=== PATIENT | male | born 1965 | race Caucasian/White ===

== ENCOUNTER 2020-06-06 00:45 | Inpatient (IN) ==
[2020-06-06] MEDS: SODIUM CHLORIDE 0.9% 1000ML 1,000 ML IV SCH ×2 (01:10→02:15)
[2020-06-06 01:12] LABS: Basophils # (auto) 0.07 K/uL (0-0.2); Basophils % (auto) 0.6 %; Eosinophils # (auto) 0.05 K/uL (0-0.5); Eosinophils % (auto) 0.4 %; Hematocrit (blood only) 39.3 % (42-52); Hemoglobin 12.9 g/dL (14.0-18.0); Immature Granulocytes # (auto) 0.06 K/uL (0.00-0.02); Immature Granulocytes % (auto) 0.5 %; Lymphocytes # (auto) 1.57 K/uL (1.2-3.4); Lymphocytes % (auto) 13.5 %; Mean Corpuscular Hemoglobin 30.1 pg (25-34); Mean Corpuscular Hgb Conc 32.8 g/dL (32-36); Mean Corpuscular Volume 91.8 fL (80-100); Mean Platelet Volume 10.1 fL (7.4-10.4); Monocytes # (auto) 1.37 K/uL (0.11-0.59); Monocytes % (auto) 11.8 %; Neutrophils # (auto) 8.47 K/uL (1.4-6.5); Neutrophils % (auto) 73.2 %; Platelet Count 339 K/uL (130-400); RDW Coefficient of Variation 13.3 % (11.5-14.5); RDW Standard Deviation 44.5 fL (36.4-46.3); Red Blood Count 4.28 M/uL (4.7-6.1); White Blood Count 11.59 K/uL (4.8-10.8)
--- NOTE | 2020-06-06 01:14 | Emergency Department Note ---
History of Present Illness General Chief complaint: Knee Injury/Pain Stated complaint: KNEE PAIN/FEVER Time Seen by Provider: 06/06/20 00:48 Source: patient Mode of arrival: EMS Limitations: no limitations History of Present Illness Maximum Pain Intensity: 5 This patient is a 55-year-old male who presents to the emergency department via EMS for evaluation of right leg infection. The patient had a right total knee replacement performed by Dr. Perez, [facility] at [facility]. His surgery was 6 days ago. Patient states that 3 days ago, he noticed a feeling of swelling in the leg. He states that his swelling and pain have progressively worsened and he has noticed redness of the knee and lower leg. He contacted his orthopedist's office and they ordered an ultrasound of the leg which was performed today at [facility] and showed no DVT. Patient states that he developed a fever tonight as well as some generalized malaise and nausea. He reports pain worsened tonight as well. He has not noticed any drainage from the incision. He rates his discomfort a 5/10. He denies any cough, shortness of breath, or vomiting. Denies any urinary symptoms. Home Medications Medication Instructions Recorded Confirmed Type acetaminophen 650 mg PO Q4 PRN 06/06/20 06/06/20 History hydrochlorothiazide 25 mg PO DAILY 06/06/20 06/06/20 History hydrocodone-acetaminophen [[place]] 1 tab PO Q4H PRN 06/06/20 06/06/20 History losartan 100 mg PO QAM 06/06/20 06/06/20 History meclizine 25 mg PO BID 06/06/20 06/06/20 History rivaroxaban [Xarelto] 10 mg PO DAILY 06/06/20 06/06/20 History Allergies Allergy/AdvReac Type Severity Reaction Status Date / Time morphine Allergy Difficulty Verified 06/06/20 01:43 Breathing aspirin AdvReac Nose Bleed Verified 06/06/20 01:43 Past Med/Surg History Medical History (Updated 06/06/20 @ 06:25 by Isabel Truong PA-C) Hypertension Morbid obesity Sleep apnea Vertigo Surgical History (Updated 06/06/20 @ 06:25 by Isabel Truong PA-C) S/P total knee replacement Social History Smoking Status: Never smoker Hx Alcohol Use: No Hx Substance Use: No Preferred Language: Icelandic Communication Ability: Effective Beliefs That Will Affect Care: None Current Living Situation: Spouse Feels Safe at Home: Yes Assistive Devices: CPAP and Glasses Review of Systems A total of 10 systems reviewed and were otherwise negative Physical Exam Vital Signs Vital Signs - 24 hr 06/06/20 00:52 06/06/20 01:00 06/06/20 01:17 Temperature 37.4 C Temperature Source Oral Pulse Rate 98 H 93 H 87 Pulse Rhythm Regular Respiratory Rate 20 16 20 Respiratory Effort / Characteristics Non-Labored Spontaneous Respiratory Depth Normal Blood Pressure 152/75 H 114/81 Blood Pressure Mean 100 92 Pulse Oximetry 99 99 100 Oxygen Delivery Method Room Air Room Air Sepsis Recent Fever Within 48 Hours Yes Sepsis New/Unexplained Change in Mental Status N/A Sepsis Action Taken by Nursing No Action Required 06/06/20 01:23 06/06/20 02:00 06/06/20 02:30 Temperature Temperature Source Pulse Rate 90 92 H Pulse Rhythm Respiratory Rate 20 20 Respiratory Effort / Characteristics Non-Labored Spontaneous Respiratory Depth Blood Pressure 139/71 152/83 H Blood Pressure Mean 93 106 Pulse Oximetry 99 99 98 Oxygen Delivery Method Room Air Sepsis Recent Fever Within 48 Hours Sepsis New/Unexplained Change in Mental Status Sepsis Action Taken by Nursing VITALS: Vitals are noted on the nurse's note and reviewed by myself. Vital signs stable. GENERAL: This is a 55-year-old male, in no acute distress, well-developed well- nourished. EARS: External auditory canals clear, tympanic membranes pearly ward without erythema or effusion bilaterally. EYES: Pupils equal round and reactive to light and accommodation. MOUTH: Mucous membranes moist. NECK: Supple without nuchal rigidity. HEART: Regular rate and rhythm without murmurs gallops or rubs. LUNGS: Clear to auscultation bilaterally without wheezes, rales or rhonchi. No retractions or accessory muscle use. ABDOMEN: Positive bowel sounds x 4. Soft, nontender to palpation. EXTREMITIES: RIGHT LEG: Stapled wound to the right knee without drainage. There is erythema extending from the right knee down the leg and foot. 2+ pitting edema noted to the lower extremity. Dorsalis pedis pulse 2+. Capillary refill within 2 seconds. NEURO: Patient was alert and oriented to person place and time. Distal sensation intact. Course Consultations Consultation #1: Dr. Perez - [facility] Discussed the case with Dr. Perez, the patient surgeon. He states that he was made aware the patient was having issues with redness and swelling of the leg and he had ordered a Doppler earlier today due to this which was negative. He thinks it is unlikely that the patient has a septic joint and does not feel that he needs to be transferred at this time. Consultation #2: Dr. Rea [facility] hospitalist Administered Medications Acetaminophen (Acetaminophen 325 Mg Tab) 650 mg PO Q4 PRN PRN Reason: Pain or Fever Stop: 07/06/20 05:02 Last Admin: 06/06/20 05:57 Dose: 650 mg Documented by: [id number] Hydromorphone HCl (Hydromorphone Inj 0.5 Mg/0.5 Ml Syr) 0.2 mg IV Q3H PRN PRN Reason: Severe Pain Stop: 06/20/20 04:15 Last Admin: 06/06/20 05:57 Dose: 0.2 mg Documented by: [id number] Discontinued Medications Sodium Chloride (Nss 1000ml) 1,000 mls @ 999 mls/hr IV .Q1H1M SUNIL Stop: 06/06/20 03:02 Last Infusion: 06/06/20 04:24 Dose: 0 mls/hr Documented by: [id number] Admin: 06/06/20 02:15 Dose: 999 mls/hr Documented by: [id number] Cosigned by: [id number] Infusion: 06/06/20 02:11 Dose: 999 mls/hr Documented by: [id number] Cosigned by: [id number] Admin: 06/06/20 01:10 Dose: 999 mls/hr Documented by: [id number] Cosigned by: [id number] Ceftriaxone Sodium (Rocephin) 2,000 mg in 70 mls @ 140 mls/hr IV NOW STA Stop: 06/06/20 03:14 Last Infusion: 06/06/20 04:24 Dose: 0 mls/hr Documented by: [id number] Admin: 06/06/20 03:00 Dose: 140 mls/hr Documented by: [id number] Cosigned by: [id number] Vancomycin HCl 2,750 mg/ (Sodium Chloride) 555 mls @ 200 mls/hr IV NOW ONE Stop: 06/06/20 06:04 Last Admin: 06/06/20 04:24 Dose: 200 mls/hr Documented by: [id number] Miscellaneous Information (Vancomycin Consult Active) 1 ea N/A UD PRN PRN Reason: Consult Stop: 07/06/20 03:17 Last Admin: 06/06/20 04:24 Dose: 1 ea Documented by: [id number] Medical Decision Making Differential Diagnosis Differential diagnosis includes septic joint, cellulitis, DVT, superficial thrombosis, sepsis, peripheral vascular disease, among others. Home Medications Current Medication List: was personally reviewed by me Laboratory Data Attestation: I reviewed the patient's lab results. Result diagrams: 06/06/20 00:55 06/06/20 00:55 Lab Results 06/06/20 06/06/20 06/06/20 Range/Units 00:55 00:55 00:55 WBC 11.59 H (4.8-10.8) K/uL RBC 4.28 L (4.7-6.1) M/uL Hgb 12.9 L (14.0-18.0) g/dL Hct 39.3 L (42-52) % MCV 91.8 (80-100) fL MCH 30.1 (25-34) pg MCHC 32.8 (32-36) g/dL RDW Std Deviation 44.5 (36.4-46.3) fL RDW Coeff of Mary Ann 13.3 (11.5-14.5) % Plt Count 339 (130-400) K/uL MPV 10.1 (7.4-10.4) fL Immature Gran % (Auto) 0.5 % Neut % (Auto) 73.2 % Lymph % (Auto) 13.5 % Mills % (Auto) 11.8 % Eos % (Auto) 0.4 % Baso % (Auto) 0.6 % Neut # (Auto) 8.47 H (1.4-6.5) K/uL Lymph # (Auto) 1.57 (1.2-3.4) K/uL [place] # (Auto) 1.37 H (0.11-0.59) K/uL Eos # (Auto) 0.05 (0-0.5) K/uL Baso # (Auto) 0.07 (0-0.2) K/uL Immature Gran # (Auto) 0.06 H (0.00-0.02) K/uL PT 11.7 (9.0-12.0) Seconds INR 1.2 H (0.9-1.1) APTT 28.7 (21.0-31.0) Seconds PTT Ratio 1.1 Sodium 140 (136-145) mmol/L Potassium 3.6 (3.5-5.1) mmol/L Chloride 104 (98-107) mmol/L Carbon Dioxide 29 (21-32) mmol/L Anion Gap 7.0 (3-11) BUN 14 (7-18) mg/dl Creatinine 0.94 (0.6-1.4) mg/dl Est Cr Clr Drug Dosing 146.7 ml/min Est GFR ( Amer) 105.4 Est GFR (Non-Af Amer) 90.9 BUN/Creatinine Ratio 15.4 (10-20) Glucose 114 H (70-99) mg/dl Lactate (0.4-2.0) mmol/L Calcium 8.7 (8.5-10.1) mg/dl Total Bilirubin 1.1 H (0.2-1) mg/dl AST 24 (15-37) U/L ALT 28 (12-78) U/L Alkaline Phosphatase 102 (45-117) U/L Total Protein 7.7 (6.4-8.2) gm/dl Albumin 3.0 L (3.4-5.0) gm/dl Globulin 4.7 H (2.5-4.0) gm/dl Albumin/Globulin Ratio 0.6 L (0.9-2) COVID-19 Eval Order SARS-CoV-2, RNA, NAAT (NEGATIVE) 06/06/20 06/06/20 06/06/20 Range/Units 01:15 01:15 01:26 WBC (4.8-10.8) K/uL RBC (4.7-6.1) M/uL Hgb (14.0-18.0) g/dL Hct (42-52) % MCV (80-100) fL MCH (25-34) pg MCHC (32-36) g/dL RDW Std Deviation (36.4-46.3) fL RDW Coeff of Mary Ann (11.5-14.5) % Plt Count (130-400) K/uL MPV (7.4-10.4) fL Immature Gran % (Auto) % Neut % (Auto) % Lymph % (Auto) % [place] % (Auto) % Eos % (Auto) % Baso % (Auto) % Neut # (Auto) (1.4-6.5) K/uL Lymph # (Auto) (1.2-3.4) K/uL [place] # (Auto) (0.11-0.59) K/uL Eos # (Auto) (0-0.5) K/uL Baso # (Auto) (0-0.2) K/uL Immature Gran # (Auto) (0.00-0.02) K/uL PT (9.0-12.0) Seconds INR (0.9-1.1) APTT (21.0-31.0) Seconds PTT Ratio Sodium (136-145) mmol/L Potassium (3.5-5.1) mmol/L Chloride (98-107) mmol/L Carbon Dioxide (21-32) mmol/L Anion Gap (3-11) BUN (7-18) mg/dl Creatinine (0.6-1.4) mg/dl Est Cr Clr Drug Dosing ml/min Est GFR ( Amer) Est GFR (Non-Af Amer) BUN/Creatinine Ratio (10-20) Glucose (70-99) mg/dl Lactate 1.2 (0.4-2.0) mmol/L Calcium (8.5-10.1) mg/dl Total Bilirubin (0.2-1) mg/dl AST (15-37) U/L ALT (12-78) U/L Alkaline Phosphatase (45-117) U/L Total Protein (6.4-8.2) gm/dl Albumin (3.4-5.0) gm/dl Globulin (2.5-4.0) gm/dl Albumin/Globulin Ratio (0.9-2) COVID-19 Eval Order Covid19 [facility] SARS-CoV-2, RNA, NAAT NEGATIVE (NEGATIVE) Imaging Data Attestation: I personally reviewed and interpreted this imaging study as follows: My Impression: CHEST 1 VIEW: Normal cardiac silhouette. No pulmonary consolidation. No pneumothorax. ECG Data Attestation: I personally reviewed and interpreted this ECG as follows: Indication: + weakness Rate (beats per minute): 88 Rhythm: + normal sinus ECG Intervals/blocks: + Normal QRS ECG ST segments: + Normal ST segments Comparison ECG Date: no prior available MDM Narrative Continuous cardiac cath technician: Order was placed for continuous cardiac cath technician. Patient was placed on the cardiac cath technician. Patient was noted to be in normal sinus rhythm at an initial rate of 85 bpm. The patient is a 55-year-old male who presents today complaining of right leg swelling/redness and pain. Patient had a recent knee replacement. Fortunately, he appears to have a cellulitis versus a septic joint at this time, however given recent instrumentation I would be concerned for the possibility of a developing septic joint. Labs revealed a leukocytosis of 11.59, otherwise were unremarkable. Lactate was not elevated. Blood cultures drawn and pending. Patient was febrile at home although afebrile here. His surgeon did not recommend transfer at this time as he felt a septic joint was unlikely. The case was discussed with the hospitalist service here, who agreed to evaluate the patient for further care. He received Rocephin and vancomycin in the ED as well as a fluid bolus. Impression & Plan Cellulitis of right lower extremity without foot, S/P total knee replacement, Postoperative infection Discharge Plan Visit Data Chief Complaint: Knee Injury/Pain Stated Complaint: KNEE PAIN/FEVER ED Provider: [facility] ED Midlevel Provider: Isabel Truong Discharge Problem: Cellulitis of right lower extremity without foot, S/P total knee replacement, Postoperative infection Patient Disposition: Admitted As Inpatient Discharge Instructions Interventions: ED Discharge Assessment Last Done: 06/06/20 04:34 Discharge Problem: S/P total knee replacement Qualifiers: Laterality: right Qualified Code(s): Z96.651 - Presence of right artificial knee joint Postoperative infection Qualifiers: Encounter type: initial encounter Postoperative infection type: unspecified type Qualified Code(s): T81.40XA - Infection following a procedure, unspecified, initial encounter
[2020-06-06 01:25] LABS: INR 1.2 (0.9-1.1); Partial Thromboplastin Ratio 1.1; Partial Thromboplastin Time 28.7 Seconds (21.0-31.0); Prothrombin Time 11.7 Seconds (9.0-12.0)
[2020-06-06 01:41] LABS: BUN Creatinine Ratio 15.4 (10-20); Calcium 8.7 mg/dl (8.5-10.1); Creatinine Clr Calc Pharmacy 146.7 ml/min; Est GFR (African American) 105.4; Est GFR (Non-African American) 90.9; Potassium 3.6 mmol/L (3.5-5.1)
[2020-06-06 01:44] LABS: Albumin Globulin Ratio 0.6 (0.9-2); Bilirubin,Total 1.1 mg/dl (0.2-1); Globulin 4.7 gm/dl (2.5-4.0); Total Protein 7.7 gm/dl (6.4-8.2)
[2020-06-06] MEDS ORDERED: cefTRIAXone SODIUM 2,000 MG/70 ML BAG IV STA (02:45)
[2020-06-06] MEDS ORDERED: VANCOMYCIN CONSULT ACTIVE PRN ×2 (03:18→05:03)
[2020-06-06] MEDS ORDERED: VANCOMYCIN HCL 2,750 MG in SODIUM CHLORIDE 0.9% 500 ML IV ONE (03:18)
--- NOTE | 2020-06-06 04:17 | History & Physical Report ---
Date of Service June 06, 2020 Assessment & Plan (1) Cellulitis of right lower extremity without foot: Right lower extremity cellulitis/postoperative infection/status post right TKA- Infection does not appear to involve the joint directly at this time. Place on vancomycin IV per pharmacokinetic monitoring. Zosyn 4.5 g IV every 8 hours Keep in contact with orthopedic surgeon [facility] Dr. Perez. Acetaminophen 650 mg p.o. every 6 hours as needed mild pain or temperature [place] 5/325, 1 p.o. every 6 hours as needed moderate pain Dilaudid 0.2 mg IV every 3 hours as needed severe pain Present on Admission?: Yes (2) Postoperative infection: See above Present on Admission?: Yes (3) S/P total knee replacement: See above Continue Xarelto Present on Admission?: Yes (4) Vertigo: Continue meclizine Present on Admission?: Yes (5) Sleep apnea: STEVEN- Patient will use his own CPAP Present on Admission?: Yes (6) Hypertension: Hold HCTZ. Continue losartan 100 mg p.o. every morning with hold parameters Present on Admission?: Yes History of Present Illness Chief Complaint: The patient presents to the emergency department with complaint of worsening right lower extremity pain, swelling and redness. Primary Care Provider: Abdirashid Wilburn The patient is a 55-year-old male with a past medical history including hypertension, morbid obesity and vertigo, who underwent a right total knee arthroplasty by Dr. Perez at [facility] on 05/31/2020. He reports that 3 days ago, he started noticed some swelling and redness, which progressed over the past 2 days. He called the orthopedist office, and he was sent sent to [facility] on 06/05, where he had venous Doppler which was negative for DVT. Later this evening, he developed a temperature, and with worsening discomfort, he presented to the ED at [facility] for assessment, was found to have a right lower extremity cellulitis, and was referred for evaluation for admission. Allergies Allergy/AdvReac Type Severity Reaction Status Date / Time morphine Allergy Difficulty Verified 06/06/20 01:43 Breathing aspirin AdvReac Nose Bleed Verified 06/06/20 01:43 Home Medications Medication Instructions Recorded Confirmed Type acetaminophen 650 mg PO Q4 PRN 06/06/20 06/06/20 History hydrochlorothiazide 25 mg PO DAILY 06/06/20 06/06/20 History hydrocodone-acetaminophen [[place]] 1 tab PO Q4H PRN 06/06/20 06/06/20 History losartan 100 mg PO QAM 06/06/20 06/06/20 History meclizine 25 mg PO BID 06/06/20 06/06/20 History rivaroxaban [Xarelto] 10 mg PO DAILY 06/06/20 06/06/20 History Past Med/Surg History Medical History Hypertension Sleep apnea Surgical History (Updated 06/06/20 @ 04:13 by Peña Rea MD) S/P total knee replacement Social History Smoking Status: Never smoker Preferred Language: Swedish Feels Safe at Home: Yes Review of Systems Review of Systems: The patient denies chest pain, palpitations, shortness of breath, dyspnea on exertion, cough, sore throat, fevers, chills, sweats, nausea, vomiting, diarrhea , constipation, abdominal pain, pelvic pain, blood in urine or stool, dysuria, urinary frequency or urgency, lightheadedness, dizziness, headache, memory loss, loss of consciousness, abnormal bruising or bleeding, generalized weakness, numbness or tingling in arms, generalized arthralgias or m yalgias, back or neck pain, or night sweats. The review of systems is otherwise negative other than for that already noted above, and at least 10 systems have been reviewed. Physical Exam Physical Exam: The patient is awake, alert and oriented 3, well developed and well nourished, normocephalic and atraumatic, lying in bed and in no acute distress. HEENT--PERRL, EOMI, mucous membranes and oropharynx normal. Neck--supple. No JVD. No bruits. Thyroid normal, trachea midline, no adenopathy. Heart--normal S1 and S2. No murmurs, rubs or gallops. Lungs--clear bilaterally, no respiratory distress, no accessory muscle use. Abdomen--normal bowel sounds and soft. Nontender. Nondistended. Morbidly obese Extremities--no cyanosis or clubbing. Right lower extremity with 3+ pitting edema mild to moderate erythema and warmth. Left lower extremity with 2+ pretibial pitting edema. Incision of right knee is intact with francis, with most erythema and warmth distal to incision. Dermatologic--as noted Neurologic--cranial nerves II through XII grossly intact. Rheumatologic--decreased range of motion right lower extremity/knee due to swelling Psychiatric--normal affect. Results & Data Results & Data ([facility]) Vital Signs (Past 12 Hours) Vital Signs Temp Pulse Resp BP Pulse Ox 06/06/20 02:30 92 H 20 152/83 H 98 06/06/20 02:00 90 20 139/71 99 06/06/20 01:23 99 06/06/20 01:17 87 20 100 06/06/20 01:00 93 H 16 114/81 99 06/06/20 00:52 99.3 F 98 H 20 152/75 H 99 Laboratory Results Laboratory Results WBC 11.59 K/uL (4.8-10.8) H 06/06/20 00:55 RBC 4.28 M/uL (4.7-6.1) L 06/06/20 00:55 Hgb 12.9 g/dL (14.0-18.0) L 06/06/20 00:55 Hct 39.3 % (42-52) L 06/06/20 00:55 MCV 91.8 fL (80-100) 06/06/20 00:55 MCH 30.1 pg (25-34) 06/06/20 00:55 MCHC 32.8 g/dL (32-36) 06/06/20 00:55 RDW Std Deviation 44.5 fL (36.4-46.3) 06/06/20 00:55 RDW Coeff of Mary Ann 13.3 % (11.5-14.5) 06/06/20 00:55 Plt Count 339 K/uL (130-400) 06/06/20 00:55 MPV 10.1 fL (7.4-10.4) 06/06/20 00:55 Immature Gran % (Auto) 0.5 % 06/06/20 00:55 Neut % (Auto) 73.2 % 06/06/20 00:55 Lymph % (Auto) 13.5 % 06/06/20 00:55 [place] % (Auto) 11.8 % 02/03/21 00:55 Eos % (Auto) 0.4 % 06/06/20 00:55 Baso % (Auto) 0.6 % 06/06/20 00:55 Neut # (Auto) 8.47 K/uL (1.4-6.5) H 06/06/20 00:55 Lymph # (Auto) 1.57 K/uL (1.2-3.4) 06/06/20 00:55 [place] # (Auto) 1.37 K/uL (0.11-0.59) H 06/06/20 00:55 Eos # (Auto) 0.05 K/uL (0-0.5) 06/06/20 00:55 Baso # (Auto) 0.07 K/uL (0-0.2) 06/06/20 00:55 Immature Gran # (Auto) 0.06 K/uL (0.00-0.02) H 06/06/20 00:55 PT 11.7 Seconds (9.0-12.0) 06/06/20 00:55 INR 1.2 (0.9-1.1) H 06/06/20 00:55 APTT 28.7 Seconds (21.0-31.0) 06/06/20 00:55 PTT Ratio 1.1 06/06/20 00:55 Sodium 140 mmol/L (136-145) 06/06/20 00:55 Potassium 3.6 mmol/L (3.5-5.1) 06/06/20 00:55 Chloride 104 mmol/L (98-107) 06/06/20 00:55 Carbon Dioxide 29 mmol/L (21-32) 06/06/20 00:55 Anion Gap 7.0 (3-11) 06/06/20 00:55 BUN 14 mg/dl (7-18) 06/06/20 00:55 Creatinine 0.94 mg/dl (0.6-1.4) 06/06/20 00:55 Est Cr Clr Drug Dosing 146.7 ml/min 06/06/20 00:55 Est GFR ( Amer) 105.4 06/06/20 00:55 Est GFR (Non-Af Amer) 90.9 06/06/20 00:55 BUN/Creatinine Ratio 15.4 (10-20) 06/06/20 00:55 Glucose 114 mg/dl (70-99) H 06/06/20 00:55 Lactate 1.2 mmol/L (0.4-2.0) 06/06/20 01:26 Calcium 8.7 mg/dl (8.5-10.1) 06/06/20 00:55 Total Bilirubin 1.1 mg/dl (0.2-1) H 06/06/20 00:55 AST 24 U/L (15-37) 06/06/20 00:55 ALT 28 U/L (12-78) 06/06/20 00:55 Alkaline Phosphatase 102 U/L (45-117) 06/06/20 00:55 Total Protein 7.7 gm/dl (6.4-8.2) 06/06/20 00:55 Albumin 3.0 gm/dl (3.4-5.0) L 06/06/20 00:55 Globulin 4.7 gm/dl (2.5-4.0) H 06/06/20 00:55 Albumin/Globulin Ratio 0.6 (0.9-2) L 06/06/20 00:55 COVID-19 Eval Order Covid19 IDNow [facility] 06/06/20 01:15 SARS-CoV-2, RNA, NAAT NEGATIVE (NEGATIVE) 06/06/20 01:15 Code Status & VTE Plan Code Status Full code VTE Prophylaxis Plan VTE Prophylaxis will be ordered: Yes PG Care Time/CCT Total # of Minutes Spent Total Time Spent with Patient: Total time spent is greater than 50% in coordination of care (as documented) at patient's floor/unit and/or counseling patient: Coding Level of Care Code 71178 Initial Inpt Care Lvl 3 Diagnoses Cellulitis of right lower extremity without foot L03.115 Postoperative infection T81.40XA S/P total knee replacement Z96.659 Vertigo R42 Sleep apnea G47.30 Hypertension I10
[2020-06-06] MEDS ORDERED: VANCOMYCIN HCL 1,000 MG in SODIUM CHLORIDE 0.9% 250 ML IV SCH (05:03)
[2020-06-06] MEDS ORDERED: ONDANSETRON INJ 2 MG/ML 2 ML VIAL IV PRN (05:03)
[2020-06-06] MEDS ORDERED: PIPERACILL/TAZOBAC CONSULT ACTIVE PRN (05:03)
[2020-06-06] MEDS: ACETAMINOPHEN 325 MG TAB PO PRN ×2 (05:57→16:35)
[2020-06-06] MEDS: HYDROmorphone INJ 0.5 MG/0.5 ML SYR IV PRN ×4 (05:57→20:32)
--- NOTE | 2020-06-06 07:33 | XRay Report ---
XR chest 1V portable HISTORY: SEPSIS COMPARISON: None. FINDINGS: There are low lung volumes. The cardiac silhouette is mildly enlarged. The lungs are clear. No evidence for pulmonary edema. No pleural effusions. No pneumothorax. IMPRESSION: Mild cardiomegaly. ACT 112: Negative or not required by law. Electronically signed by: Isaac Heath M.D. 06/06/2020 7:32 AM
[2020-06-06] MEDS ORDERED: PIPERACILLIN/TAZOBACTAM 4.5 GM in DEXTROSE 5% 100 ML IV ONE (08:00)
[2020-06-06] MEDS: RIVAROXABAN 10 MG TABLET PO SCH (08:07)
[2020-06-06] MEDS: LOSARTAN POTASSIUM 50 MG TAB PO SCH (08:08)
[2020-06-06] MEDS: MECLIZINE HCL 25 MG TAB PO SCH ×2 (08:09→20:35)
[2020-06-06 10:20] LABS: Appearance Urine Clear (Clear); Bacteria Urine Automated Negative (Negative); Bilirubin Urine Negative (Negative); Blood Urine Negative (Negative); Color Urine Dark Yellow; Glucose Urine UA Negative (Negative); Ketones Urine 1+ (Negative); Leukocyte Esterase Urine Negative (Negative); Nitrite Urine Negative (Negative); Protein Urine Trace (Negative); RBC Urine Automated 0-4 /hpf (0-4); Specific Gravity Urine 1.028 (1.000-1.030); Urobilinogen Urine Negative (Negative); pH Urine 5.5 (4.5-7.5)
[2020-06-06] MEDS: PIPERACILLIN/TAZOBACTAM 4.5 GM in DEXTROSE 5% 100 ML IV SCH ×2 (11:56→20:35)
[2020-06-06] MEDS ORDERED: DAPTOmycin 500 MG in SYRINGE 0 ML IV SCH (12:00)
--- NOTE | 2020-06-06 14:20 | Hospitalist Progress Note ---
Date of Service June 06, 2020 Assessment & Plan (1) Cellulitis of right lower extremity without foot: Right lower extremity cellulitis versus soft tissue hemorrhage. Status post right TKA a short time ago in [place].- Currently on Zosyn and daptomycin. Orthopedic evaluation pending. Procalcitonin level ordered. Orthopedic surgeon [facility] is Dr. Perez. [place] 5/325, 1 p.o. every 6 hours as needed moderate pain Dilaudid 0.2 mg IV every 3 hours as needed severe pain (2) Postoperative infection: See above. Current clinical presentation could be due to postoperative of soft tissue hemorrhage however. (3) S/P total knee replacement: See above Continue Xarelto for now. May need to discontinue (4) Vertigo: Continue meclizine (5) Sleep apnea: STEVEN- Patient will use his own CPAP (6) Hypertension: Hold HCTZ. Continue losartan 100 mg p.o. every morning with hold parameters Admission and Anticipated Discharge Date Admission Date: June 06, 2020 Subjective Alert and oriented. No complaints. The right lower extremity appearance may actually be due to soft tissue hemorrhage rather than cellulitis. Will ask orthopedic surgery to evaluate the leg. Procalcitonin ordered. He is currently on Zosyn and daptomycin. Venous Doppler of the right lower extremity negative on Jun 05 in [place]. Review of Systems Review of Systems: Constitutional- fever, no chills ENT-no blurred vision, no double vision, no epistaxis, no sore throat Respiratory-no cough, no wheezing, no shortness of breath Cardiac-no palpitations, no chest pain, no syncope GI-no nausea, vomiting, diarrhea, melena, hematochezia -no urinary retention, no urinary incontinence, no dysuria, no hematuria Musculoskeletal-postoperative right knee discomfort as expected with limited range of motion. Erythema swelling and tenderness of the right lower extremity below the knee Skin-no bruising, no rashes, no pruritus Neuro-no isolated weakness, no paresthesia, no weakness Psych-no depression, no anxiety Physical Exam Physical Exam: General-alert and oriented x3, no fevers, no chills HEENT-head atraumatic and normocephalic, TMs intact bilaterally, pupils equal and reactive to light, extraocular muscles intact Neck-no lymphadenopathy or thyromegaly, trachea midline Chest-clear to auscultation percussion. No rales wheezing or rhonchi Cardiac-regular rate and rhythm, normal S1 and S2, no murmurs Abdomen-normal bowel sounds, nontender, no hepatosplenomegaly Extremities-right knee surgical site is intact without drainage. Diffuse discoloration and erythema of the right lower extremity from the knee to the foot with tenderness. Neuro-cranial nerves II through XII intact, motor and sensory function within normal limits Psych-normal affect, normal mood Results & Data Results & Data ([facility]) Vital Signs (Past 12 Hours) Vital Signs Temp Pulse Pulse Pulse Resp BP BP 06/06/20 07:00 37.2 C 91 H 18 138/78 06/06/20 04:57 37.1 C 97 H 16 06/06/20 04:45 37.7 C H 92 H 18 148/88 H 06/06/20 04:34 87 16 140/78 06/06/20 02:30 92 H 20 152/83 H BP Pulse Ox 06/06/20 07:00 97 06/06/20 04:57 160/80 H 99 06/06/20 04:45 98 06/06/20 04:34 99 06/06/20 02:30 98 Laboratory Results 06/06/20 00:55 06/06/20 00:55 PG Care Time/CCT Total # of Minutes Spent Total Time Spent with Patient: Total time spent is greater than 50% in coordination of care (as documented) at patient's floor/unit and/or counseling patient: Coding Level of Care Code 06944 Subseq Hosp Care Lvl 3 Diagnoses Cellulitis of right lower extremity without foot L03.115 Postoperative infection T81.40XA Encounter type: initial encounter Postoperative infection type: unspecified type S/P total knee replacement Z96.651 Laterality: right Vertigo R42 Sleep apnea G47.30 Hypertension I10 (1) Postoperative infection Encounter type: initial encounter Postoperative infection type: unspecified type Qualified Code(s): T81.40XA - Infection following a procedure, unspecified, initial encounter (2) S/P total knee replacement Laterality: right Qualified Code(s): Z96.651 - Presence of right artificial knee joint
--- NOTE | 2020-06-06 14:30 | XRay Report ---
TWO VIEWS RIGHT KNEE CLINICAL HISTORY: Right knee pain. FINDINGS: AP and crosstable lateral portable views of the right knee are obtained. No prior studies a re available for comparison at the time of dictation. A right knee arthroplasty is in near anatomic a lignment. There has been undersurface remodeling of the patella. No acute fracture is seen. There is a joint effusion. There are expected postoperative changes around the knee including skin clips, a thurman rgical drain, soft tissue edema, and subcutaneous gas. IMPRESSION: Expected postoperative changes status post right knee arthroplasty. No acute fracture is seen. ACT 112: Negative or not required by law. Electronically signed by: Tyler Flores M.D. 06/06/2020 2:28 PM
--- NOTE | 2020-06-06 16:03 | Electrocardiogram Report ---
Test Reason : Blood Pressure : / mmHG Vent. Rate : 088 BPM Atrial Rate : 088 BPM P-R Int : 154 ms QRS Dur : 098 ms QT Int : 368 ms P-R-T Axes : 015 -13 010 degrees QTc Int : 445 ms Normal sinus rhythm Minimal voltage criteria for LVH, may be normal variant Borderline ECG No previous ECGs available Confirmed by Isai Morales ([id number]) on 06/06/2020 4:03:43 PM Referred By: REFERRED SELF Confirmed By:Isai Morales
[2020-06-06] MEDS: HYDROCODONE/ACETAMOPHEN 5/325MG TAB PO PRN (22:24)
[2020-06-07] MEDS: HYDROmorphone INJ 0.5 MG/0.5 ML SYR IV PRN ×4 (00:34→11:03)
[2020-06-07] MEDS: PIPERACILLIN/TAZOBACTAM 4.5 GM in DEXTROSE 5% 100 ML IV SCH ×2 (03:41→11:21)
[2020-06-07] MEDS: HYDROCODONE/ACETAMOPHEN 5/325MG TAB PO PRN ×2 (05:43→12:08)
[2020-06-07 05:57] LABS: Basophils # (auto) 0.07 K/uL (0-0.2); Basophils % (auto) 0.7 %; Eosinophils # (auto) 0.05 K/uL (0-0.5); Eosinophils % (auto) 0.5 %; Hematocrit (blood only) 35.3 % (42-52); Hemoglobin 11.2 g/dL (14.0-18.0); Immature Granulocytes # (auto) 0.03 K/uL (0.00-0.02); Immature Granulocytes % (auto) 0.3 %; Lymphocytes # (auto) 1.37 K/uL (1.2-3.4); Lymphocytes % (auto) 14.3 %; Mean Corpuscular Hemoglobin 29.4 pg (25-34); Mean Corpuscular Hgb Conc 31.7 g/dL (32-36); Mean Corpuscular Volume 92.7 fL (80-100); Mean Platelet Volume 9.9 fL (7.4-10.4); Monocytes % (auto) 10.4 %; Neutrophils # (auto) 7.08 K/uL (1.4-6.5); Neutrophils % (auto) 73.8 %; Platelet Count 351 K/uL (130-400); RDW Coefficient of Variation 13.4 % (11.5-14.5); RDW Standard Deviation 45.6 fL (36.4-46.3); Red Blood Count 3.81 M/uL (4.7-6.1)
[2020-06-07] MEDS: LOSARTAN POTASSIUM 50 MG TAB PO SCH (07:55)
[2020-06-07] MEDS: MECLIZINE HCL 25 MG TAB PO SCH (07:55)
[2020-06-07] MEDS: RIVAROXABAN 10 MG TABLET PO SCH (07:55)
--- NOTE | 2020-06-07 07:57 | Orthopedic Consultation ---
Date of Service June 07, 2020 Assessment & Plan (1) S/P total knee replacement: He was seen and examined by Dr. Alexander today. He does have some obvious swelling, erythema and is quite tender in his lower extremity. He can dorsiflex and plantarflex appropriately though and does not appear to have a compartment syndrome. We reassured him that swelling and discoloration that he has is not uncommon after total knee replacement especially in the postoperative day 6-10 range that he is in. He is also on Xarelto which is likely contributed some to this. We did recommend some compression on the lower extremity. He has tried wearing some EZIO stockings but had some pain with these. He can either continue with the EZIO stockings but at this time will wrap his leg with some Kerlix and an Ralph wrap to his knee which would be reasonable for him to continue as well. It is important to elevate this. We also recommended that he gets up and walks every couple of hours. Continue with physical therapy. We will order some therapy here in the hospital to help with knee motion while he is here. From an orthopedic standpoint it is okay for him to be discharged home. We would recommend some oral antibiotics just for coverage at this time. Would recommend Keflex 500 mg 4 times daily for 10 days. He should follow up with his orthopedic surgeon in the [place] area as scheduled. History of Present Illness Reason for Consultation: . Possible cellulitis status post total knee arthroplasty Requesting Physician: . Attending Physician: Giovanni Arroyo MD . Mr. Ron is a 55-year-old gentleman who is now 7 days status post right total knee arthroplasty done in [facility] by Dr. Perez with [facility] orthopedics. He was discharged home postoperative day 1 he reports that he was doing pretty well the first couple of days. On postop day 3 he developed some increased pain and swelling in his leg. It did worsen and he developed some redness in the lower leg. He said he had fever as well. Denies any wound drainage. Apparently had an ultrasound done as an outpatient which was negative for DVT. He presented to [facility] was admitted to the hospitalist service. he reports pain in the lower leg down. He received some IV antibiotics. Allergies Allergy/AdvReac Type Severity Reaction Status Date / Time morphine Allergy Difficulty Verified 06/06/20 01:43 Breathing aspirin AdvReac Nose Bleed Verified 06/06/20 01:43 Home Medications Medication Instructions Recorded Confirmed Type acetaminophen 650 mg PO Q4 PRN 06/06/20 06/06/20 History hydrochlorothiazide 25 mg PO DAILY 06/06/20 06/06/20 History hydrocodone-acetaminophen [[place]] 1 tab PO Q4H PRN 06/06/20 06/06/20 History losartan 100 mg PO QAM 06/06/20 06/06/20 History meclizine 25 mg PO BID 06/06/20 06/06/20 History rivaroxaban [Xarelto] 10 mg PO DAILY 06/06/20 06/06/20 History Past Med/Surg History Medical History Hypertension Morbid obesity Sleep apnea Vertigo Surgical History S/P total knee replacement Social History Smoking Status: Never smoker Hx Alcohol Use: No Hx Substance Use: No Preferred Language: Slovenian Communication Ability: Effective Beliefs That Will Affect Care: None Current Living Situation: Spouse Feels Safe at Home: Yes Assistive Devices: CPAP Review of Systems All systems reviewed & are unremarkable except as noted in HPI & below. Physical Exam . Constitutional well developed and well nourished; no acute distress Respiratory normal respiratory effort Cardiovascular Extremities: normal capillary refill and + edema Musculoskeletal Incision is well approximated and francis are intact. There is no active drainage. He is not able do a straight leg raise at this time. He is quite tender with any just gentle palpation of his lower leg. He does have some swelling and erythema of his lower leg. He can dorsiflex and plantarflex actively without difficulty. No pain with passive motion of the toes. Sensations intact to touch. He does have some brawny discoloration of his left lower leg. Skin + erythema Incision well approximated Results & Data Results & Data Laboratory Results . Diagnostic Findings . X-rays of his knee were reviewed which show a cemented total knee arthroplasty. Its in good alignment. There is no fractures no dislocation. PG Care Time/CCT Total # of Minutes Spent Total Time Spent with Patient: Total time spent is greater than 50% in coordination of care (as documented) at patient's floor/unit and/or counseling patient: Coding Level of Care Code 32063 Inpt Consult Level 3 Diagnoses S/P total knee replacement Z96.651 Laterality: right (1) S/P total knee replacement Laterality: right Qualified Code(s): Z96.651 - Presence of right artificial knee joint
--- NOTE | 2020-06-07 09:44 | Discharge Summary ---
Date of Service June 07, 2020 Admission HPI Per Admitting Provider The patient is a 55-year-old male with a past medical history including hypertension, morbid obesity and vertigo, who underwent a right total knee arthroplasty by Dr. Perez at [facility] on 05/31/2020. He reports that 3 days ago, he started noticed some swelling and redness, which progressed over the past 2 days. He called the orthopedist office, and he was sent sent to [facility] on 06/05, where he had venous Doppler which was negative for DVT. Later this evening, he developed a temperature, and with worsening discomfort, he presented to the ED at [facility] for assessment, was found to have a right lower extremity cellulitis, and was referred for evaluation for admission. Principal Diagnosis Soft tissue hemorrhage RLE status post right TKA Discharge Exam Constitutional WD/WN, vitals as above Eyes PERRL, conjunctivae normal, anicteric sclerae ENMT external ear and nose normal, oropharynx normal Neck trachea midline, no thyromegaly Respiratory normal respiratory effort, lungs clear to auscultation Cardiovascular RRR, no murmur, no edema Gastrointestinal (Abdomen) normal bowel sounds, soft, nontender, no hepatosplenomegaly Musculoskeletal RLE below knee edematous, tender, discolored, Surgical site right knee intact without drainage Skin no rashes, warm and dry Neurologic CN's II-XI intact bilaterally Psychiatric A+Ox3, euthymic affect Discharge Data Allergies Allergy/AdvReac Type Severity Reaction Status Date / Time morphine Allergy Difficulty Verified 06/06/20 01:43 Breathing aspirin AdvReac Nose Bleed Verified 06/06/20 01:43 Consultations 06/06/20 03:43 ED Decision to Admit Stat 06/06/20 05:03 Consult Case Management - Discharge Planning Routine 06/06/20 12:43 Consult Orthopedic Surgery Routine Hospital Course (1) Cellulitis of right lower extremity without foot: Right lower extremity soft tissue hemorrhage. Status post right TKA a short time ago in [place]. Procalcitonin normal, no fever, no leukocytosis. Zosyn and daptomycin discontinued. Orthopedic evaluation noted. No active infection although prophylaxis with keflex recommended at discharge. Orthopedic surgeon [facility] is Dr. Perez. [place] 5/325, 1 p.o. every 6 hours as needed moderate pain (2) Postoperative infection: Ruled out. Current clinical presentation appears to be due to postoperative soft tissue hemorrhage . (3) S/P total knee replacement: See above Continue Xarelto for now. (4) Vertigo: Continue meclizine (5) Sleep apnea: STEVEN- Patient will use his own CPAP (6) Hypertension: Hold HCTZ. Restarted at discharge Continue losartan 100 mg p.o. every morning with hold parameters Total Time Total Time Spent Total Time Spent (In Minutes): 35 minutes Total Time Includes: Examination of the Patient, Discharge Planning and Medication Reconciliation Discharge Plan Discharge Items Reason For Visit: RLE CELLULITIS, POST OP Medications and DC Order Prescriptions: No Action acetaminophen 325 mg Tablet 650 mg PO Q4 PRN (Reason: temp>101.3) RF: 0 meclizine 25 mg Tablet 25 mg PO BID RF: 0 hydrochlorothiazide 25 mg Tablet 25 mg PO DAILY RF: 0 losartan 100 mg Tablet 100 mg PO QAM RF: 0 Xarelto 10 mg Tablet 10 mg PO DAILY RF: 0 hydrocodone-acetaminophen [[place]] 5-325 mg Tablet 1 tab PO Q4H PRN (Reason: Mild Pain (Scale Score 1-4)) RF: 0 Admission Data Admit Date/Time: 06/06/20 04:03 Attending Provider: Giovanni Arroyo Admit Provider: Peña Rea Primary Care Provider: Abdirashid Wilburn Other Providers: May Banks ; Yoana Weston ; Jordan Villanueva ; Live Singh ; Kishor Cardoso ; Robinson Streeter ; Jazzmine Newberry ; Tom Ricardo ; Eloise Boothe ; Wilian Alexander ; Hank Reyes ; Garo Bush ; Garo Mejia Debie L ; Peña Rea Coding Level of Care Code D/C Day Management >30 mins Diagnoses Cellulitis of right lower extremity without foot L03.115 Postoperative infection T81.40XA Encounter type: initial encounter Postoperative infection type: unspecified type S/P total knee replacement Z96.651 Laterality: right Vertigo R42 Sleep apnea G47.30 Hypertension I10
== END 2020-06-07 12:14 | disposition home health service (06) | DRG 603 ==
LOC: ED 00:45 → 3W 04:03 → SUATTDRO 04:03 → 3W 04:34